=== PATIENT | male | born 1995 | race Caucasian/White ===

== ENCOUNTER 2017-01-03 08:34 | Emergency (ER) | payer OTHER ==
[~2017-01-03] VITALS: Ht 182.9 cm; Wt 79.1 kg
[2017-01-03 08:34] VITALS: BP 121/76
[2017-01-03] MEDS ORDERED: FLUORESCEIN OPHTH 1 MG STRIP OD ONE (08:45)
[2017-01-03] MEDS ORDERED: TETRACAINE 0.5% OPHTH SOLN 4ML OD ONE (08:45)
[2017-01-03] MEDS ORDERED: NORCO, ANEXSIA 5/325MG TABLET (HYDROcodone/ACETAMINOPHEN) PO ONE (09:00)
[2017-01-03] MEDS ORDERED: ERYTHROMYCIN OPHTH OINT OD ONE (09:00)
[2017-01-03] MEDS ORDERED: BLEP10SO OP (09:34)
== END 2017-01-03 09:38 | disposition home or self-care (01) ==
LOC: M ED 08:34
DX: S05.01XA Injury of conjunctiva and corneal abrasion without foreign body, right eye, initial encounter (principal); X58.XXXA Exposure to other specified factors, initial encounter; Y92.019 Unspecified place in single-family (private) house as the place of occurrence of the external cause; Y93.89 Activity, other specified; Y99.8 Other external cause status